=== PATIENT | female | born 1960 | race American Indian/Alaskan Native ===

== ENCOUNTER 2025-03-12 08:49 | Emergency (ER) | payer OTHER ==
[~2025-03-12] VITALS: Ht 165.1 cm; Wt 65.8 kg
[~2025-03-12 08:49] MED LIST: ALBU90OI6 INH; ALBU90OI61 INH; AMLO10 PO; Aspirin EC81 MG PO; FISH1000 PO; LOSARTAN POTASS50 MG PO; LOSARTAN-HCTZ1 EAC5 PO; MONT10T PO; Tessalon200 MG PO
[2025-03-12 11:48] VITALS: BP 139/87
== END 2025-03-12 11:50 | disposition home or self-care (01) ==
LOC: ER 08:49
DX: S93.402A Sprain of unspecified ligament of left ankle, initial encounter (principal); Z88.8 Allergy status to other drugs, medicaments and biological substances; Z79.899 Other long term (current) drug therapy; W01.0XXA Fall on same level from slipping, tripping and stumbling without subsequent striking against object, initial encounter
CPT/HCPCS: 73610; 99283-25; A9270